=== PATIENT | male | born 1965 | race Caucasian/White ===

== ENCOUNTER 2019-10-21 12:55 | Emergency (ER) | payer MEDICARE, SELFPAY ==
--- NOTE | ~2019-10-21 | XR_ITS ---
EXAMINATION: XR chest 1V portable DATE: 10/21/2019 14:09 INDICATION: Shortness of breath. Cough. TECHNIQUE: A single frontal view of the chest was obtained. COMPARISON: Chest single view 01/12/2018, chest CT 04/24/2017 FINDINGS: There are reticular opacities with architectural distortion in the upper lobes. No pleural effusion or pneumothorax. The heart size is normal. There is a prominent left paracardial fat pad. IMPRESSION: 1. Reticular opacities with architectural distortion in the upper lobes, likely chronic lung disease. Reviewed, dictated and finalized at location A. [employer] [employer]ARDS DISPATCHER
[2019-10-21 13:03] VITALS: BP 133/86; PULSE 121; RESP 30; TEMP 36.9; O2SAT 94
[2019-10-21 13:26] VITALS: PULSE 116; RESP 24
[2019-10-21] MEDS: IPRATROPIUM 0.5 MG/ALBUTEROL SULFATE 2.5 MG AMPUL.NEB 3 ML INHALATION ×2 (13:29→19:03)
[2019-10-21 13:48] LABS: Hematocrit 37.3 % (40.0-54.0); Mean Corpuscular HGB Conc 34.9 g/dL (32.0-36.0); Mean Corpuscular Hemoglobin 31.3 pg (27.0-31.0); Mean Corpuscular Volume 89.9 fL (78.0-102.0); Mean Platelet Volume 8.6 fl (8.7-11.0); Platelet Count Result 111 K/mm3 (150-420); Red Blood Count 4.15 M/mm3 (4.70-6.10); Red Cell Distribution Width 12.1 % (11.6-14.4); White Blood Count 5.3 K/mm3 (4.8-10.8)
[2019-10-21 13:52] VITALS: PULSE 120; RESP 32
[2019-10-21 13:53] LABS: Base Excess ABG 2.7 mmol/L (0-2); HCO3 ABG 27.2 mmol/L (23-29); Modified Allen's Test Pass; Oxygen Content ABG 18.5 %vol (16.0-22.0); Oxygen Saturation ABG 96.3 % (95-97); Oxyhemoglobin 95.3 % (94-100); PCO2 ABG 41.5 mmHg (35-45); PO2 ABG 76.6 mmHg (80-90); Site Drawn RIGHT RADIAL; Total Hemoglobin 13.8 g/dL; pH ABG 7.43 (7.35-7.45)
[2019-10-21 13:54] LABS: Device NASAL CANNULA
[2019-10-21 14:03] LABS: Alanine Aminotransferase 35 U/L (16-63); Albumin Level 3.8 g/dL (3.4-5.0); Alkaline Phosphatase 215 U/L (46-116); Anion Gap 10.3 mmol/L (7-16); Aspartate Amino Transferase 27 U/L (15-37); Bilirubin,Total 0.4 mg/dL (0.00-1.00); Blood Urea Nitrogen 19 mg/dL (7-18); Calcium 8.6 mg/dL (8.5-10.1); Carbon Dioxide 32 mmol/L (21-32); Chloride 95 mmol/L (98-108); Estimated CRCL calculation 47 ml/min; Estimated Glomerular Filt Rate 60; Glucose 113 mg/dL (70-99); Osmolality Calculated 279 mOsm/kg (285-295); Potassium 4.3 mmol/L (3.5-5.1); Sodium 133 mmol/L (136-145); Total Protein 8.2 g/dL (6.4-8.2)
[2019-10-21 14:08] LABS: Lactic Acid 1.2 mmol/L (0.4-2.0)
[2019-10-21] MEDS: methylPREDNISolone SOD SUCC 125 MG VIAL 80 MG IV PUSH (14:12)
--- NOTE | 2019-10-21 14:13 | ED.SOB ---
HPI - SOB/Dyspnea General Chief Complaint: Shortness of Breath/Dyspnea Stated Complaint: ambulance History of Present Illness HPI Narrative: 53-year-old with hx of cystic fibrosis, COPD, seizure disorder, psychosis and depression presents with cough, shortness of breath, weakness and lethargy, onset this AM. He has not been on antibiotics for long time according to his mother. He does not use oxygen, receives neb. tx. BID. He is ambulatory, llives at an assisted living facility. HE is well known at [facility] on the pulmonary floor. In his reported a room air pulse ox 91% respiratory rate 22 pulse rate of 117 BP 152/76 Related Data Home Medications Medication Instructions Recorded Confirmed acetaminophen [Mapap 650 mg PO Q6-8H PRN 10/21/19 10/21/19 (acetaminophen)] albuterol sulfate 0.63 mg INHALATION BID 10/21/19 10/21/19 alum-mag hydroxide-simeth [Mylanta 30 ml PO Q4-5H PRN 10/21/19 10/21/19 Maximum Strength] aspirin 81 mg PO DAILY 10/21/19 10/21/19 bismuth subsalicylate 525 mg PO 8-12XD PRN 10/21/19 10/21/19 calcium carbonate-vitamin D3 1 cap PO DAILY 10/21/19 10/21/19 [Calcium 600 + D(3)] carbamide peroxide [Debrox] 3 drp OTIC (EAR) TID PRN 10/21/19 10/21/19 fluoxetine 40 mg PO DAILY 10/21/19 10/21/19 lamotrigine 100 mg PO DAILY 10/21/19 10/21/19 lamotrigine 150 mg PO HS 10/21/19 10/21/19 [id number]-rvtdtqnk-oanqlil [Creon] 1 cap PO HS 10/21/19 10/21/19 tsnggk-zqnmchwe-yukmnsq [Creon] 2 cap PO TIDWM 10/21/19 10/21/19 magnesium hydroxide [Milk of 30 ml PO DAILY PRN 10/21/19 10/21/19 Magnesia] multivitamin,do-psau-afexuwhm 1 tablet PO DAILY 10/21/19 10/21/19 [Therems-M] omeprazole 20 mg PO BID 10/21/19 10/21/19 phenol [Chloraseptic Throat [place]] 1 spray MUCOUS MEMBRANE TID PRN 10/21/19 10/21/19 risperidone 4 mg PO HS 10/21/19 10/21/19 sodium chloride [Deep Sea Nasal] 2 spray INTRANASAL Q4H PRN 10/21/19 10/21/19 Allergies Allergy/AdvReac Type Severity Reaction Status Date / Time No Known Allergies Allergy Verified 10/21/19 13:17 Review of Systems Review of Systems: Narrative: ROS limited by patient lethargy; aunt (M.P.O.A. who checks on [place] daily) was able to answer some questions.. Constitutional: Constitutional: Denies chills and Denies fever(s) Eyes: Eyes: Denies no additional eye complaints ENT: Denies nasal congestion Cardiovascular: Cardiovascular: Denies chest pain Respiratory: Respiratory: Reports as per HPI Comments: chronic cough Gastrointestinal: Gastrointestinal: Denies abdominal pain and Denies vomiting Integumentary/Breasts: Skin/Breast: Denies rash PMFSH Past Medical History Medical History (Updated 10/22/19 @ 02:06 by Jay Mcdonough MD) Autism COPD (chronic obstructive pulmonary disease) Cystic fibrosis Depression Hard of hearing Psychosis Seizure Surgical History Surgical History (Updated 10/21/19 @ 18:17 by Jay Mcdonough MD) H/O excision of tumor of brain meninges Family History Family History (Updated 10/21/19 @ 18:17 by Jay Mcdonough MD) Father Leukemia Social History Social History (Updated 10/21/19 @ 18:09 by Jay Mcdonough MD) Smoking status: Never smoker Gender identity (if verbalized by the patient): Male Exam Narrative: Exam Narrative: Head flexed forward, opens eyes to command. Labored breathing. Const: General: ill appearing HENMT: Face and sinus: sinuses nontender Mouth: Yes moist mucous membranes Eyes: Conjunctivae: conjunctivae normal Neck: Neck: normal visual inspection and no lymphadenopathy Resp: Auscultation: no rales, no rhonchi, wheezes (inspiratory,expiratory. ) and diminished lung sounds Other: intercostal retraction Cardio: Rate: regular rate and tachycardic GI: Inspection: non-distended GI Palp: Yes Soft to palpation, No Tenderness to palpation present (GI) and No Palpable mass present Back/Spine/Pelvis: Back: no CVA tenderness Skin: General skin exam: normal color Neuro: Ot
[2019-10-21 14:17] LABS: Band Neutrophils Percent 12 % (0-6); Basophils Percent Manual 0 % (0-1); Eosinophils Percent Manual 0 % (1-6); Lymphocytes Absolute Manual 0.58 K/mm3 (1.1-4.5); Lymphocytes Percent Manual 11 % (18-44); Monocytes Percent Manual 0 % (3-9); Neutrophils Absolute Manual 4.71 K/mm3 (1.3-6.7); Neutrophils Percent Manual 77 % (46-73); Platelet Estimate Adequate (Adequate); Total Cells Counted 100
--- NOTE | 2019-10-21 15:44 | PC.NURSE ---
Call placed to [facility] Access line for Dr Mcdonough to speak to cystic fibrosis team. Awaiting call back.
--- NOTE | 2019-10-21 16:09 | PC.NURSE ---
Spoke with [facility] access line. Requested information provided. States will call back with room assignment once available.
--- NOTE | 2019-10-21 17:13 | PC.NURSE ---
YOGESH CALL DR. DOBBS SPEAKS WITH . WILL ACCEPT PT. AWAITING FOR ROOM @[id number]
--- NOTE | 2019-10-21 17:15 | PC.NURSE ---
RESTING FAMILY AT BEDSIDE. MORE ALERT SMILING AND CONVERSING IN ONE WORD SENTENCES WITH STAFF. APPEARS COMFORTABLE.
--- NOTE | 2019-10-21 18:46 | PC.NURSE ---
1800 NO CHANGES. DOZING AT TIMES APPEARS COMFORTABLE. [facility] CALLED NO BED AT THIS TIME . SUPPER TRAY ORDERED. FAMILY REMAINS AT BEDSIDE
[2019-10-21] MEDS: SODIUM CHLORIDE 0.9% IV 1,000 ML 100 ML IV CONT (19:03)
--- NOTE | 2019-10-21 19:12 | PC.NURSE ---
Contacted [facility] access line. Spoke with Osman who states there will be a delay in the pt getting a room assignment. Dr Mcdonough aware. ER hold bed requested.
--- NOTE | 2019-10-21 19:17 | PC.NURSE ---
Pt assigned to room 205 as ER hold.
--- NOTE | 2019-10-21 19:21 | PC.NURSE ---
[facility]CALLED IAN STATES UNSURE WHEN WILL HAVE A BED . DECISION TO PLACE PT IN RM 205 ER HOLD .
[2019-10-21 19:26] VITALS: PULSE 87
--- NOTE | 2019-10-21 19:45 | PC.NURSE ---
TO RM 205 PER LOUISE. IN STABLE CONDITION REPORT TO KEN. O2 CONT @ 3L/NC IV INFUSSING AT 100ML/HR/PUMP PT. AT 90% OF MEAL TRAY SERVED.
[2019-10-21 20:01] LABS: Influenza Control Valid (Valid)
--- NOTE | 2019-10-21 20:17 | PC.NURSE ---
pt arrives from ED for hold, awaiting placement at [facility], sister in law and brother in room, request apple juice with thick it as he has trouble swallowing, sister in law reports he is deaf in L ear and only has 50% hearing in R ear, non prod cough noted, 02 on at 3L
--- NOTE | 2019-10-21 21:22 | PC.NURSE ---
pt resting in bed, no s/sx of distress, intermit. cough , on 3L humidified, rails up, bed alarm on per family, sister in law states that nursing home care finds him up wandering alot and he falls frequently, iv fluids running
--- NOTE | 2019-10-21 21:34 | PC.NURSE ---
upon review of labs pt is found to be positive for flu A, rome will notify dr griffin, pt placed on droplet precautions, er nurse states pt was tested for influenza right before bringing him up and she had not checked back to verify results
--- NOTE | 2019-10-21 21:47 | PC.NURSE ---
Marce notified of pos. flu results. and Dr. Mcdonough notified of results.
[2019-10-21 22:07] VITALS: BP 89/50; PULSE 78; RESP 18; TEMP 36.3; O2SAT 93
--- NOTE | 2019-10-21 22:08 | PC.NURSE ---
report called to Екатерина at [facility], message left for family, [facility] called for transport with [facility] for hot die picker of [phone]
[2019-10-21] MEDS: OSELTAMIVIR PHOSPHATE 75 MG CAP PO (22:16)
--- NOTE | 2019-10-21 22:19 | PC.NURSE ---
late entry for 10/21/20195, left voicemail for pt medical detail representative to inform them about pt testing positive for the flu. no answer, message left.
--- NOTE | 2019-10-21 22:20 | PC.NURSE ---
attempted to reach family again via telephone to notify them that [facility] has a bed available and that pt will be transferring tonight. Left message.
--- NOTE | 2019-10-21 22:20 | PC.NURSE ---
pt given tamiflu in applesauce, takes drink of thickened apple juice, urinal placed between legs
--- NOTE | 2019-10-21 22:51 | PC.NURSE ---
Mae returned call. notified her of influenza exposure and recommended she call their doctor in the AM to see if he has any recommendations for prophylactic treatment to prevent the flu. Also notified her of transport to [facility]. DANY will be here at 11pm. requested that i give her number to the ambulance crew and have them call her when they arrive at [facility].
--- NOTE | 2019-10-21 23:40 | PC.NURSE ---
Normal Saline infusing as ordered upon pt exit of facility with EMS. Stop time for MAR Normal Saline 10/21/2019 @ 4081
--- NOTE | 2019-10-21 23:43 | PC.NURSE ---
pt left facility via EMS at 2320 accompanied by 2 paramedics. made safe exit from unit.
== END 2019-10-21 23:09 | disposition short-term general hospital (02) ==
PROVIDERS: Emergency Provider Family Medicine
DX: E84.9 Cystic fibrosis, unspecified (principal); J44.1 Chronic obstructive pulmonary disease with (acute) exacerbation
CPT/HCPCS: 36415; 36600; 71045; 80053; 82805; 83605; 85025; 87040; 87804; 94640; 96361; 96365; 96367; 96375; 99283; 99285; A9270; J0692; J1956; J2543; J2930; J7030

== ENCOUNTER 2021-01-06 18:33 | Emergency (ER) | payer MEDICARE, SELFPAY ==
--- NOTE | ~2021-01-06 | CT_ITS ---
EXAMINATION: CT facial bones wo con DATE: 01/06/2021 22:10 INDICATION: Facial pain TECHNIQUE: Computed tomography (CT) of the facial bones and maxillofacial region was performed withou t intravenous contrast. The dose-length product (DLP) was 286.17 mGy-cm. Automated exposure control a nd iterative reconstruction technique were employed. COMPARISON: 04/25/2018 FINDINGS: There are comminuted bilateral nasal bone fractures. There is chronic depression in the ant erior wall of the right maxillary sinus. There is a large right frontal and right periorbital hematom a. There is mild mucosal thickening of the paranasal sinuses. Changes of right temporal craniotomy ar e noted. IMPRESSION: 1. Comminuted bilateral nasal bone fractures. 2. Large right frontal and right periorbital hematoma. Reviewed, dictated and finalized at location A.
--- NOTE | ~2021-01-06 | CT_ITS ---
EXAMINATION: CT brain wo con INDICATION: Head injury 02/28/2019 COMPARISON: None TECHNIQUE: Standard unenhanced head CT. The dose-length product (DLP) was 681.00 mGy-cm. The mA was a djusted according to patient size. Iterative reconstruction technique was employed. FINDINGS: There is no intracranial hemorrhage, acute infarction, or abnormal mass lesion. There is a large right frontal scalp and periorbital hematoma. There is no abnormal mass effect or midline shift . Changes of right temporal craniotomy with encephalomalacia in the right temporal lobe are again not ed. Encephalomalacia is also noted in the left temporal lobe. There are extensive calcifications in t he bilateral basal ganglia and frontal lobes. The basal cisterns are patent. The orbits are normal. T here are acute nasal bone fractures. Pansinusitis is noted. IMPRESSION: 1. Right periorbital hematoma without acute intracranial abnormality. 2. Acute nasal bone fractures. Reviewed, dictated and finalized at location A.
--- NOTE | ~2021-01-06 | CT_ITS ---
EXAMINATION: CT abdomen pelvis w con INDICATION: Left flank pain TECHNIQUE: Computed tomographic images of the abdomen and pelvis were obtained after the administrati on of 100 cc of Omnipaque 350 intravenous contrast. The dose-length product (DLP) was 419.64 mGy-cm. Automated exposure control and iterative reconstruction technique were employed. COMPARISON: None available FINDINGS: Minimal dependent atelectasis is present in the lung bases. The heart size is normal. Stone s are present in the nondistended gallbladder. The liver, spleen, pancreas, and adrenal glands are no rmal. The kidneys are unremarkable. No pathologically enlarged abdominal or pelvic lymph nodes are id entified. There is no free intraperitoneal gas or evidence of bowel obstruction. A large volume of co lonic stool is present. There is mild lumbar spondylosis. IMPRESSION: 1. No CT correlate for the patient's symptoms. 2. Cholelithiasis without cholecystitis. Reviewed, dictated and finalized at location A.
--- NOTE | 2021-01-06 18:37 | ED.HEATRA ---
HPI - Head Injury General Chief complaint: Fall Stated complaint: fell cut head Time Seen by Provider: 01/06/21 18:38 Source: patient Mode of arrival: EMS Limitations: other (Unable to give adequate history) History of Present Illness HPI Narrative: 51-year-old man with a history of autism, schizophrenia, cystic fibrosis, COPD and seizures brought to the emergency department by EMS after being found in a hallway with a bleeding nasal laceration. He was noted to have bruising and swelling around his right eye which EMT was told was due to a fall he had several days ago. Staff stated it was likely from a seizure. Patient does not complain of any pain. There is no reported vomiting or recent illness. His last seizure was approximately 1 week ago. MD Complaint: head injury Onset (ago): day(s) Mechanism of Injury: unsure Place: other ( [facility] Loss of Consciousness: unsure Location of injury: face Severity: moderate Other Injuries: other ( left flank contusion noted during exam) Context: on aspirin Associated symptoms: other ( history of seizures) Related Data Home Medications Medication Instructions Recorded Confirmed acetaminophen [Mapap 650 mg PO Q6-8H PRN 10/21/19 01/06/21 (acetaminophen)] albuterol sulfate 0.63 mg INHALATION BID 10/21/19 01/06/21 alum-mag hydroxide-simeth [Mylanta 30 ml PO Q4-5H PRN 10/21/19 01/06/21 Maximum Strength] aspirin 325 mg PO DAILY 10/21/19 01/06/21 bismuth subsalicylate 525 mg PO 8-12XD PRN 10/21/19 01/06/21 calcium carbonate-vitamin D3 1 cap PO DAILY 10/21/19 01/06/21 [Calcium 600 + D(3)] carbamide peroxide [Debrox] 3 drp OTIC (EAR) TID PRN 10/21/19 01/06/21 fluoxetine 40 mg PO DAILY 10/21/19 01/06/21 lamotrigine 100 mg PO DAILY 10/21/19 01/06/21 lamotrigine 150 mg PO HS 10/21/19 01/06/21 fyqaiw-aebhzuvh-lwpzgvc [Creon] 1 cap PO HS 10/21/19 01/06/21 ieblue-ffkfccyr-fujshbo [Creon] 2 cap PO TIDWM 10/21/19 01/06/21 magnesium hydroxide [Milk of 30 ml PO DAILY PRN 10/21/19 01/06/21 Magnesia] multivitamin,yc-mqdi-piolcsgq 1 tablet PO DAILY 10/21/19 01/06/21 [Therems-M] omeprazole 20 mg PO BID 10/21/19 01/06/21 phenol [Chloraseptic Throat [place]] 1 spray MUCOUS MEMBRANE TID PRN 10/21/19 01/06/21 risperidone 4 mg PO HS 10/21/19 01/06/21 sodium chloride [Deep Sea Nasal] 2 spray INTRANASAL Q4H PRN 10/21/19 01/06/21 atorvastatin 40 mg PO DAILY 01/06/21 01/06/21 zgncazsjrcs-dkphrpddhm-shilelg 1 ea PO DAILY 01/06/21 01/06/21 [Trikafta] Allergies Allergy/AdvReac Type Severity Reaction Status Date / Time No Known Allergies Allergy Verified 01/06/21 22:34 Review of Systems Review of Systems: All systems reviewed & are unremarkable except as noted in HPI and below ROS unobtainable: Yes other ( hard of hearing, poor communication skills, few words.) Constitutional: Constitutional: Reports chills PMFSH Past Medical History Medical History Autism COPD (chronic obstructive pulmonary disease) Cystic fibrosis Depression Hard of hearing Psychosis Seizure Surgical History Surgical History H/O excision of tumor of brain meninges Family History Family History (Updated 10/21/19 @ 18:17 by Jay Mcdonough, ) Father Leukemia Social History Social History Smoking status: Never smoker Gender identity (if verbalized by the patient): Male Exam Const: General: healthy appearing, no acute distress and alert HENMT: Ears: TM's normal bilaterally and EAC's normal Face and sinus: sinus tenderness maxillary ( Right) Mouth: Yes moist mucous membranes Throat: posterior oropharynx normal and uvula midline Other: Right periorbital swelling and bruising with a transverse laceration on the bridge of the nose where there is swelling and tenderness. Eyes: Conjunctivae: conjunctivae n
--- NOTE | 2021-01-06 18:38 | ECG_ITS ---
Measurements Intervals [place] Rate: P: OR: QRS: QRSD: T: QT: QTc: Interpretive Statements SINUS RHYTHM BASELINE ARTIFACT- I, II, III, AVR, AVL, AVF, V1-V4 NORMAL ECG Electronically Signed On 01-07-2021 12:30:37 CDT by Adalid Lee D.O.
[2021-01-06 18:51] VITALS: BP 114/58; PULSE 81; RESP 20; TEMP 36.4; O2SAT 97
[2021-01-06 19:00] VITALS: BP 110/86; PULSE 95; RESP 20; O2SAT 97
[2021-01-06 19:05] LABS: Basophils Absolute Auto 0.01 K/mm3 (0.00-0.10); Basophils Percent Auto 0.2 % (0.0-1.0); Eosinophils Percent Auto 4.1 % (1.0-6.0); Hematocrit 34.1 % (40.0-54.0); Hemoglobin 11.7 g/dL (14.0-18.0); Immature Granulocyte Absolute 0.01 K/mm3 (0.00-0.00); Immature Granulocyte Percent A 0.2 % (0.0-0.0); Immature Platelet Fraction Pct 1.4 % (1.0-7.0); Lymphocytes Absolute Auto 1.21 K/mm3 (1.10-4.50); Lymphocytes Percent Auto 24.6 % (18.0-42.0); Mean Corpuscular HGB Conc 34.3 g/dL (32.0-36.0); Mean Corpuscular Hemoglobin 32.9 pg (27.0-31.0); Mean Corpuscular Volume 95.8 fL (78.0-102.0); Mean Platelet Volume 9.3 fl (8.7-11.0); Monocytes Absolute Auto 0.52 K/mm3 (0.10-0.90); Monocytes Percent Auto 10.6 % (2.0-11.0); Neutrophils Percent Auto 60.3 % (50.0-70.0); Platelet Count Result 111 K/mm3 (150-420); Red Blood Count 3.56 M/mm3 (4.70-6.10); White Blood Count 4.9 K/mm3 (4.8-10.8)
[2021-01-06] MEDS: ONDANSETRON INJ 4 MG/2 ML VIAL IV PUSH (19:14)
[2021-01-06] MEDS: SODIUM CHLORIDE 0.9% IV 1,000 ML 999 ML IV CONT ×2 (19:14→21:17)
[2021-01-06 19:18] LABS: INR 1.1; Partial Thromboplastin Time 27.8 SEC (23.90-30.70); Prothrombin Time 11.8 Seconds (9.50-12.10)
[2021-01-06 19:22] LABS: Alanine Aminotransferase 40 U/L (16-63); Albumin Level 3.4 g/dL (3.4-5.0); Alkaline Phosphatase 191 U/L (46-116); Anion Gap 4 mmol/L (8-16); Aspartate Amino Transferase 25 U/L (15-37); Bilirubin,Total 0.6 mg/dL (0.00-1.00); Blood Urea Nitrogen 25 mg/dL (7-18); Carbon Dioxide 31 mmol/L (21-32); Chloride 99 mmol/L (98-108); Estimated Glomerular Filt Rate > 60; Glucose 121 mg/dL (70-99); Lactic Acid Reflex 1.1 mmol/L (0.4-2.0); Lipase 14 U/L (73-393); Osmolality Calculated 283 mOsm/kg (285-295); Potassium 4.2 mmol/L (3.5-5.1); Sodium 134 mmol/L (136-145); Total Protein 6.7 g/dL (6.4-8.2); Troponin I < 4.0 ng/L (0.00-60.4)
[2021-01-06 21:15] VITALS: BP 118/79; PULSE 81; RESP 20; O2SAT 95
[2021-01-06 22:35] LABS: Add Urine Microscopic? NO; Appearance Urine Clear (Clear); Bilirubin Urine Negative (Negative); Blood Urine Negative (Negative); Color Urine Yellow (Yellow); Glucose Urine UA Negative (Negative); Ketones Urine Negative (Negative); Leukocyte Esterase Ur Negative LEU/UL (Negative); Nitrate Urine Negative (Negative); Protein Urine Negative (Negative); Specific Grav Ur 1.015 (1.010-1.020)
--- NOTE | 2021-01-06 22:53 | PC.NURSE ---
dr usarez spoke with [facility] care staff December about discharge planning and followup instructions. voiced understanding. december to send staff member to supervisor opening and picking patient for discharge.
[2021-01-06 22:57] VITALS: BP 125/81; PULSE 84; RESP 20; TEMP 36.9; O2SAT 94
--- NOTE | 2021-01-06 23:30 | PC.NURSE ---
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 assisted to car per rn
== END 2021-01-06 22:23 | disposition home or self-care (01) ==
PROVIDERS: Emergency Provider Emergency Medicine
DX: S02.2XXA Fracture of nasal bones, initial encounter for closed fracture (principal); S05.11XA Contusion of eyeball and orbital tissues, right eye, initial encounter; J44.9 Chronic obstructive pulmonary disease, unspecified; E84.9 Cystic fibrosis, unspecified; F32.9 Major depressive disorder, single episode, unspecified; F29 Unspecified psychosis not due to a substance or known physiological condition; R56.9 Unspecified convulsions; F84.0 Autistic disorder; Z98.890 Other specified postprocedural states; Z87.828 Personal history of other (healed) physical injury and trauma; Z91.81 History of falling
CPT/HCPCS: 36415; 70450; 70486; 74177; 80053; 81003; 83605; 83690; 84484; 85025; 85055; 85610; 85730; 93005; 96361; 96374; 99284; J2405; J7030; Q9967

== ENCOUNTER 2021-07-04 00:50 | Observation (INO) | payer MEDICARE, SELFPAY ==
[2021-07-04] VITALS (12 sets, daily range): BP systolic 91–126; BP diastolic 59–80; PULSE 70–105; RESP 12–20; TEMP 35.4–36.4; O2SAT 93–99
--- NOTE | ~2021-07-04 | CT_ITS ---
EXAMINATION: CT facial & cervical spine wo EXAM DATE: 07/04/2021 01:42 INDICATION: Fall/Head Injury Fall/Left Forehead Lac And Hematoma. TECHNIQUE: Spiral CT of the facial bones was acquired in the axial plane. Coronal reformatted images were also reviewed. Spiral CT of the cervical spine was performed without contrast. Axial images we re reviewed. Coronal and sagittal reformatted images were also reviewed. The dose-length product (DL P) for this examination was 395.31 mGy-cm. The exposure was tailored according to patient size, and iterative reconstruction (ASIR) was used as additional dose reduction technique. Comparison is made t o prior examination from 01/06/2021. FINDINGS: FACIAL CT: There is large left frontal scalp contusion, hematoma. Probable overlying laceration given focus of subcutaneous gas. Underlying calvarium is unremarkable. Nasal bone fractures which appear m ost likely old given absence of overlying soft tissue findings and that these appear more chronic com pared to when they were initially identified on CT from January. Position is unchanged compared to that t gi. There is moderate rightward nasal septal deviation. The orbits are intact. There are bilateral maxillary sinus window procedures. Opacified ethmoid air cells and moderate opacity within the axill danitza sinuses. Opacity in the frontal sinuses as well with wall thickening throughout the sinuses indic ating history of chronic sinusitis. CERVICAL CT: There is no evidence of acute cervical fracture. The odontoid process is intact. Pre-d ens space is normal. Prevertebral soft tissue is normal. There are no soft tissue abnormalities edmundo ntified. There is no disc space widening or traumatic vertebral body subluxation suspected. Overall moderate cervical spondylosis. A detailed level by level evaluation of spondylosis can be added as addendum if requested. IMPRESSION: 1. No acute facial or cervical fracture. 2. Large left frontal scalp contusion, hematoma. Laceration. 3. Old nasal bone fractures. 4. Extensive acute on chronic sinus opacity. 5. Mild to moderate cervical spondylosis. Reviewed, dictated and finalized at location B.
--- NOTE | ~2021-07-04 | CT_ITS ---
EXAMINATION: CT brain wo con EXAM DATE: 07/04/2021 01:42 INDICATION: Fall/Head Injury Fall/Left Forehead Lac And Hematoma TECHNIQUE: Spiral CT of the head was performed without contrast. Axial, coronal and sagittal images were reviewed. The dose-length product (DLP) for this examination was 681.00 mGy-cm. The exposure w as tailored according to patient size, and iterative reconstruction (ASIR) was used as additional dos e reduction technique. Comparison is made to prior examination from 01/06/2021. FINDINGS: There are dense calcifications in the basal ganglia, thalami. There are smaller calcificati ons identified in the periventricular white matter and in the bay. There is broad differential diagn osis for these calcifications including physiologic/dystrophic calcifications, toxic metabolic etiolo gy, sequela from childhood or infection. These are unchanged. There is also calcification in the right mesial temporal lobe, most likely postoperative dystrophic calcification given the overlyi ng craniotomy and adjacent temporal lobe encephalomalacia. There is a large left frontal scalp contusion/hematoma without underlying fracture. Tiny focus of sub cutaneous gas indicating scalp laceration. There is no obstructive hydrocephalus, acute intracranial hemorrhage, extra-axial collections, brain mass or evidence of acute infarction. There is moderate microangiopathy and mild cerebral atrophy. Th ere are bilateral maxillary sinus window procedures with extensive sinus opacity superimposed on wall thickening indicating history of chronic sinusitis. The mastoid air cells are well aerated. IMPRESSION: 1. Left frontal scalp contusion, hematoma, laceration. No acute intracranial findings. 2. Right temporal craniotomy, underlying encephalomalacia and mesial temporal lobe ossification prob ably dystrophic. 3. Scattered nonspecific calcifications unchanged. Reviewed, dictated and finalized at location B. IMPRESSION: 1. Left frontal scalp contusion, hematoma, laceration. No acute intracranial f indings. 2. Right temporal craniotomy, underlying encephalomalacia and mesial temporal lobe ossification probably dystrophic. 3. Scattered nonspecific calcifications unchanged.
--- NOTE | 2021-07-04 01:19 | ED.GENADULT ---
HPI - General Adult General Chief complaint: Fall Stated complaint: fall laceration above eye Source: patient and EMS Mode of arrival: EMS Limitations: clinical condition History of Present Illness HPI narrative: Ivan is a 55M with a PMH of autism, COPD, cystic fibrosis, depression and seizures that came to the ED via ambulance after a fall. He was coming back from the bathroom and went down. Per EMS he was not down very long. He is oriented to himself, place and time but further history is near impossible due to comorbid conditions. Related Data Home Medications Medication Instructions Recorded Confirmed Calcium 600 + D(3) 1 cap PO DAILY 10/21/19 07/04/21 Chloraseptic Throat [place] 1 spray MUCOUS MEMBRANE TID PRN 10/21/19 07/04/21 Creon 1 cap PO HS 10/21/19 07/04/21 Creon 2 cap PO TIDWM 10/21/19 07/04/21 Therems-M 1 tablet PO DAILY 10/21/19 07/04/21 acetaminophen [Mapap 650 mg PO Q6-8H PRN 10/21/19 07/04/21 (acetaminophen)] alum-mag hydroxide-simeth [Mylanta 30 ml PO Q4-5H PRN 10/21/19 07/04/21 Maximum Strength] aspirin 325 mg PO DAILY 10/21/19 07/04/21 bismuth subsalicylate 525 mg PO 8-12XD PRN 10/21/19 07/04/21 lamotrigine 100 mg PO DAILY 10/21/19 07/04/21 lamotrigine 150 mg PO HS 10/21/19 07/04/21 magnesium hydroxide [Milk of 30 ml PO DAILY PRN 10/21/19 07/04/21 Magnesia] omeprazole 20 mg PO BID 10/21/19 07/04/21 risperidone 2 mg PO HS 10/21/19 07/04/21 Trikafta 1 ea PO HS 07/04/21 07/04/21 albuterol sulfate 2.5 mg INHALATION BID 07/04/21 07/04/21 Allergies Allergy/AdvReac Type Severity Reaction Status Date / Time No Known Allergies Allergy Verified 01/06/21 22:34 Review of Systems Review of Systems: ROS unobtainable: Yes unobtainable due to medical condition PMFSH Past Medical History Medical History Autism COPD (chronic obstructive pulmonary disease) Cystic fibrosis Depression Hard of hearing Psychosis Seizure Surgical History Surgical History H/O excision of tumor of brain meninges Family History Family History Father Leukemia Social History Social History Smoking status: Unknown if ever smoked Alcohol intake: unknown Substance use: unknown Substance use type: unknown Gender identity (if verbalized by the patient): Male Spiritual care concerns: No Exam Const: General: healthy appearing, no acute distress and alert Orientation/consciousness: patient oriented x3 HENMT: Other: golf ball sized contusion over the left eye with 3 shallow lacerations all horizontal above the left eyebrow Eyes: Conjunctivae: conjunctivae normal Pupils: Equal, round and reactive pupils present Neck: Neck: normal visual inspection Other: in cervical collar Chest: Chest palpation & inspection: normal inspection of the chest Resp: Effort & Inspection: normal respiratory effort, not labored, no retractions and not tachypneic Auscultation: clear to auscultation bilaterally Cardio: Rate: regular rate Rhythm: regular rhythm GI: Inspection: non-distended GI Palp: Yes Soft to palpation, No Tenderness to palpation present (GI) and No Guarding due to palpation present (GI) Skin: General skin exam: normal color Rashes: no rashes Neuro: General: patient oriented x3, moves all extremities and CN's II-XI intact bilaterally Psych: Appearance: grossly normal Attitude: cooperative (Would cooperate with commands but could give almost no history ) Course Course Emergency Course: Ordered CT head, facial bones, and cervical spine as well as labs and EKG. EKG showed NSR at a rate of 78bpm with normal axis CT impression: Head: No intracranial hemorrhage, no significant mass effect or midline shift. No calvarial fracture with right temporal craniotomy incidental
--- NOTE | 2021-07-04 01:21 | PC.NURSE ---
pt is from [facility], EMS stated that they do not know what the pt's baseline AxO. upon arrival at the ER pt answering yes and no to questions but unclear if the pt understands questions. pt unable to confirm how he fell. pt is a poor historian. MD Blevins aware of pt orientation status.
--- NOTE | 2021-07-04 01:26 | ECG_ITS ---
Measurements Intervals [place] Rate: 78 P: 60 DC: 180 QRS: 59 QRSD: 97 T: 40 QT: 367 QTc: 419 Interpretive Statements SINUS RHYTHM NONSPECIFIC T-WAVE ABNORMALITY- ANTEROLATERAL LEADS BASELINE ARTIFACT- I, II, III, AVR, AVL, AVF, V1-V6 BORDERLINE ECG Electronically Signed On 07-04-2021 8:24:43 CDT by Adalid Lee D.O.
[2021-07-04 02:09] LABS: Hematocrit 29.8 % (40.0-54.0); Hemoglobin 10.6 g/dL (14.0-18.0); Immature Platelet Fraction Pct 1.8 % (1.0-7.0); Mean Corpuscular HGB Conc 35.6 g/dL (32.0-36.0); Mean Corpuscular Hemoglobin 33.8 pg (27.0-31.0); Mean Corpuscular Volume 94.9 fL (78.0-102.0); Platelet Count Result 77 K/mm3 (150-420); Red Blood Count 3.14 M/mm3 (4.70-6.10); Red Cell Distribution Width 13.5 % (11.6-14.4); White Blood Count 3.6 K/mm3 (4.8-10.8)
[2021-07-04 02:11] LABS: INR 1.1; Prothrombin Time 11.6 Seconds (9.50-12.10)
[2021-07-04 02:18] LABS: Alanine Aminotransferase 53 U/L (16-63); Albumin Level 2.9 g/dL (3.4-5.0); Alkaline Phosphatase 183 U/L (46-116); Anion Gap 8 mmol/L (8-16); Aspartate Amino Transferase 55 U/L (15-37); Bilirubin,Total 0.5 mg/dL (0.00-1.00); Blood Urea Nitrogen 23 mg/dL (7-18); Calcium 8.3 mg/dL (8.5-10.1); Carbon Dioxide 29 mmol/L (21-32); Chloride 102 mmol/L (98-108); Estimated CRCL calculation 93 ml/min; Estimated Glomerular Filt Rate > 60; Glucose 107 mg/dL (70-99); Osmolality Calculated 291 mOsm/kg (285-295); Potassium 4.1 mmol/L (3.5-5.1); Sodium 139 mmol/L (136-145); Total Protein 5.8 g/dL (6.4-8.2); Troponin I 6.7 ng/L (0.00-60.4)
[2021-07-04 02:30] LABS: Band Neutrophils Percent 0 % (0-6); Basophils Absolute Manual 0.03 K/mm3 (0-0.1); Basophils Percent Manual 1 % (0-1); Eosinophils Absolute Manual 0.21 K/mm3 (0.02-0.5); Eosinophils Percent Manual 6 % (1-6); Lymphocytes Percent Manual 28 % (18-44); Monocytes Absolute Manual 0.18 K/mm3 (0.1-0.90); Monocytes Percent Manual 5 % (3-9); Neutrophils Absolute Manual 2.16 K/mm3 (1.3-6.7); Neutrophils Percent Manual 60 % (46-73)
--- NOTE | 2021-07-04 03:53 | PC.NURSE ---
one liter of NS completed that was started by EMS.
--- NOTE | 2021-07-04 06:21 | ADMGEN ---
This patient, Ivan Mayfield, was admitted to 2nd Floor Room 206-1. Patient/family oriented to hospital policies and general routines including ID bracelet, bed and alarms, visiting hours, pain management, procedures, bathroom and other care routines, personal items, smoking policy, room service/diet, and visiting hours. patient admitted from [facility] s/p fall, patient alert to self follows commands, garbled speech, left eye and forehead swollen and bruised. vitals signs stable, see admission assessment. Information on how to activate the Rapid Response Team has been discussed. Patient/Family are encouraged to report perceived risks to care and to ask questions if they do not understand what they are told or what they should do.
[2021-07-04] MEDS: ASPIRIN 81 MG CHEWABLE TABLET 324 MG PO (08:24)
[2021-07-04] MEDS: lamoTRIgine 100 MG TABLET PO (08:24)
[2021-07-04] MEDS: ALBUTEROL SULFATE NEB 2.5 MG/3 ML INH INHALATION ×2 (10:38→18:29)
--- NOTE | 2021-07-04 13:49 | PCPTNOTE ---
No Care Plan initiated due to patient medical status, and current level of function. patient would do well to DC to [facility].
--- NOTE | 2021-07-04 14:44 | PM.IMHP ---
H&P: HPI History of Present Illness Date/Time: 07/04/21 14:44 Ivan Mayfield is a 55 year old male who comes to the hospital and being admitted under observation for head injury related to falling at the assisted living facility he resides. Pt has a PMHx of Autism, Cystic Fibrosis, Cystic fibrosis, Psychosis, Seizure, DIOMEDE, and Depression which makes obtaining a HPI and ROS very difficult. Pt mumbles often though I was able to understand that he walked somewhere then was walking back and fell. He points to the left side of his nose and above his left eye when asked where he has pain. His baseline mental status is unknown. His POA came to the hospital and informed me that Pt is at his mental baseline. Pt responds best to yes no questions. The POA informed me that he would like for his brother to return to the assisted living facility. I informed him that PT did a DC evaluation and recommended a [facility]dc Facility. I did speak with [place]ena, Case Management and PT to see if there was any way to get swing bed for this Pt to increase his mobility and return to the assisted living. Unfortunately, with the Pt being at baseline s/p head injury and there is nothing else medical to treat other than chronic conditions we well look to get patient accepted by a alf facility. Pt's brother and POA agreed to Fdc. Chief Complaint: head injury Review of Systems Review of Systems: ROS unobtainable: Yes unobtainable due to mental status PMFSH Past Medical History Medical History Autism COPD (chronic obstructive pulmonary disease) Cystic fibrosis Depression Hard of hearing Psychosis Seizure Surgical History Surgical History H/O excision of tumor of brain meninges Family History Family History Father Leukemia Social History Social History Smoking status: Unknown if ever smoked Alcohol intake: unknown Substance use: unknown Substance use type: unknown Gender identity (if verbalized by the patient): Male Spiritual care concerns: No Meds Home Medications and Allergies Home Medications Medication Instructions Recorded Confirmed Type acetaminophen [Mapap 650 mg PO Q6-8H PRN 10/21/19 07/04/21 History (acetaminophen)] albuterol sulfate 0.63 mg INHALATION BID 10/21/19 07/04/21 History alum-mag hydroxide-simeth [Mylanta 30 ml PO Q4-5H PRN 10/21/19 07/04/21 History Maximum Strength] aspirin 325 mg PO DAILY 10/21/19 07/04/21 History bismuth subsalicylate 525 mg PO 8-12XD PRN 10/21/19 07/04/21 History calcium carbonate-vitamin D3 1 cap PO DAILY 10/21/19 07/04/21 History [Calcium 600 + D(3)] lamotrigine 100 mg PO DAILY 10/21/19 07/04/21 History lamotrigine 150 mg PO HS 10/21/19 07/04/21 History dyswff-mtshdmkl-fhecaft [Creon] 1 cap PO HS 10/21/19 07/04/21 History wygzgq-moopcsmz-epklqbk [Creon] 2 cap PO TIDWM 10/21/19 07/04/21 History magnesium hydroxide [Milk of 30 ml PO DAILY PRN 10/21/19 07/04/21 History Magnesia] multivitamin,tb-hyxy-izedewko 1 tablet PO DAILY 10/21/19 07/04/21 History [Therems-M] omeprazole 20 mg PO BID 10/21/19 07/04/21 History phenol [Chloraseptic Throat Francisco] 1 spray MUCOUS MEMBRANE TID PRN 10/21/19 07/04/21 History risperidone 2 mg PO HS 10/21/19 07/04/21 History ncxaymfwmxx-dzlrtgtauf-hnpegvf 1 ea PO HS 07/04/21 07/04/21 History [Trikafta] Allergies Allergy/AdvReac Type Severity Reaction Status Date / Time No Known Allergies Allergy Verified 01/06/21 22:34 Vital Signs Vital Signs - 24 hr 07/04/21 01:03 07/04/21 03:04 07/04/21 03:40 Temperature 96.4 F L Pulse Rate 76 105 H 73 Respiratory Rate 12 18 15 Blood Pressure 112/65 118/77 Pulse Oximetry 94 95 95 07/04/21 04:00 07/04/21 04:04 07/04/21 08:00 Temperature 97.5 F L
--- NOTE | 2021-07-04 15:34 | PHAR ---
07/03/21: VERIFIED PT.'S HOME MED NIKA. TLS
--- NOTE | 2021-07-04 18:57 | PC.NURSE ---
pt up to bedside commode, up with x2 assist and walker, pt returns to bed, when asked if he is having any pain pt says no, bed alarm on, rails up, call light in reach
[2021-07-04] MEDS: lamoTRIgine 100 MG TABLET 150 MG PO (20:22)
[2021-07-04] MEDS: risperiDONE 1 MG TABLET 2 MG PO (20:23)
--- NOTE | 2021-07-04 23:42 | PC.NURSE ---
Patient in bed with eyes closed Pain 0 on FLACC. Call light in reach. Alarms on.
[2021-07-05] VITALS: BP 117/71; PULSE 67; TEMP 36.4; O2SAT 95
--- NOTE | 2021-07-05 00:40 | PC.NURSE ---
Up to bedside commode to urinate. unsteady on feet. 1 assist to stand. IV site flushed without difficulty
[2021-07-05] MEDS: ALBUTEROL SULFATE NEB 2.5 MG/3 ML INH INHALATION (05:32)
[2021-07-05 05:33] VITALS: PULSE 68; RESP 16; O2SAT 93
--- NOTE | 2021-07-05 05:38 | PC.NURSE ---
Patient up to bedside commode with assist of 1 and gait belt. does not wait for assistance. Bed alarms on. call light in reach.
[2021-07-05 05:39] VITALS: PULSE 69; RESP 18; O2SAT 96
[2021-07-05 08:00] VITALS: BP 122/59; PULSE 70; RESP 16; TEMP 36.2; O2SAT 95
[2021-07-05] MEDS: ASPIRIN 81 MG CHEWABLE TABLET 324 MG PO (09:20)
[2021-07-05] MEDS: lamoTRIgine 100 MG TABLET PO (09:21)
[2021-07-05 12:00] VITALS: BP 120/60; PULSE 70; RESP 14; TEMP 36.6; O2SAT 98
--- NOTE | 2021-07-05 13:39 | PM.DS ---
DS: Admitting Diagnosis Discharge Date 07/05/2021 <Carlos IniguezINGA PizanoC - Last Filed: 07/05/21 13:58> Admitting Diagnosis Closed Fracture of Nasal Bone, Closed Head Injury, Cystic Fibrosis, Autism <Carlos IniguezINGA PizanoC - Last Filed: 07/05/21 13:58> DS: Discharge Diagnosis Discharge Diagnosis (1) Closed fracture nasal bone: Code(s): S02.2XXA - Fracture of nasal bones, initial encounter for closed fracture <Carlos GeethaSachin Garcia APN-C - Last Filed: 07/05/21 13:58> Status: Acute <Carlos GeethaSachin Garcia APN-C - Last Filed: 07/05/21 13:58> Assessment and Plan: PRN [place], Morphine, Tylenol, Neuro checks (difficult d/t baseline mental status) and per brother, POA Pt is at baseline, no active bleeding 07/05/2021 Pain is managed well, no complaints from Pt, says no to if he has pain, VSS <Carlos IniguezSachin Garcia APN-C - Last Filed: 07/05/21 13:58> (2) CHI (closed head injury): Code(s): S09.90XA - Unspecified injury of head, initial encounter <Carlos GeethaSachin Garcia APN-C - Last Filed: 07/05/21 13:58> Status: Acute <Carlos IniguezSachin Garcia APN-C - Last Filed: 07/05/21 13:58> Assessment and Plan: Neuro checks as noted above, no active bleeding, does follow commands when Pt understands, need to use simple commands 07/05/2021 Neuro checks are WNL to the best ability given Pt difficulty with communication, Yesterday Pt's brother was in the room and stated the Pt is at his baseline. <INGA NietoC - Last Filed: 07/05/21 13:58> (3) Cystic fibrosis: Code(s): E84.9 - Cystic fibrosis, unspecified <Carlos Garcia APN-C - Last Filed: 07/05/21 13:58> Status: Acute <Carlos GeethaSachin Garcia APN-C - Last Filed: 07/05/21 13:58> Assessment and Plan: Continue home medications <Carlos RoblesALYSIA spears - Last Filed: 07/05/21 13:58> (4) Autism: Code(s): F84.0 - Autistic disorder <Carlos GarciaALYSIA - Last Filed: 07/05/21 13:58> Status: Acute <Carlos RoblesKOBI spearsEdelmiraAlfonzo - Last Filed: 07/05/21 13:58> Assessment and Plan: Need to speak slow, simple questions, yes or no response questions work best. <Carlos Pedraza ALYSIA Garcia - Last Filed: 07/05/21 13:58> DS: Summary Hospital Course Hospital Course: Pt back at mental baseline per brother, POA. swelling improved <Carlos RoblesALYSIA spears - Last Filed: 07/05/21 13:58> Time Spent with Patient Time attestation: Total time spent providing and/or coordinating discharge services: < 30 minutes <Carlos IniguezALYSIA Pizano - Last Filed: 07/05/21 13:58> Exam Const: General: cooperative, comfortable, no acute distress, alert, awake, Physically active and tired appearing <Carlos IniguezALYSIA Pizano - Last Filed: 07/05/21 13:58> Nutritional Appearance: average body habitus <Carlos RoblesALYSIA spears - Last Filed: 07/05/21 13:58> Limitations: no limitations (difficulty communicating, Autism, mumbles a lot) <Carlos IniguezALYSIA Pizano - Last Filed: 07/05/21 13:58> Eyes: Alignment and Position: alignment normal <Carlos IniguezALYSIA Pizano - Last Filed: 07/05/21 13:58> Resp: Effort & Inspection: normal respiratory effort <Carlos IniguezALYSIA Pizano - Last Filed: 07/05/21 13:58> Auscultation: clear to auscultation bilaterally <Carlos IniguezALYSIA Pizano - Last Filed: 07/05/21 13:58> Cardio: Rate: regular rate <Carlos IniguezALYSIA Pizano - Last Filed: 07/05/21 13:58> Heart sounds: S1 normal heart sound present and S2 normal heart sound present <ALYSIA Nieto - Last Filed: 07/05/21 13:58> GI: GI Palp: Yes Soft to palpation and No Tenderness to palpation present (GI) <ALYSIA Nieto - Last Filed: 07/05/21 13:58> Auscultation: normal bowel sounds <ALYSIA Nieto - Last Filed: 07/05/21 13:58> Skin: General skin exam: normal color and dry skin <ALYSIA Nieto - Last Filed: 07/05/21 13:58> Neuro: General: oriented to person <ALYSIA Nieto - Last Filed: 07/05/21 13:58>
[2021-07-05 14:18] LABS: SARS-CoV-2 RNA PCR Negative (Negative)
--- NOTE | 2021-07-05 14:43 | PC.NURSE ---
This RN called report to Holly at [facility] in [facility]. Pt has been stable today, eaten well and is taking fluids well. Pt takes meds whole with Honey thick liquids. Pt's brother is here with pt.
--- NOTE | 2021-07-05 15:15 | PC.NURSE ---
Patient discharging to [facility] in [facility]. [facility] here to transport patient to facility. Report given to EMS and discharge education and instruction packet given to EMS. Patient transferred from bed to stretcher with no assist by scooting on back over to stretcher. Patients uncle Cholo took patient clothing home to wash them. All other belongings gathered and sent with patient at discharge including home medication. IV site removed, tip intact, dressing applied to site. Patient left floor via stretcher accompanied by EMS.
--- NOTE | 2021-07-10 13:28 | PC.NURSE ---
Unable to contact for discharge call back.
== END 2021-07-05 15:15 ==
LOC: CHSED 03:02 → CHS2ND 07:22
PROVIDERS: Nurse Practitioner Family; Admitting Provider Family Medicine; Emergency Provider Family Medicine; Visit Provider Family Medicine
DX: S09.90XA Unspecified injury of head, initial encounter (principal); S00.83XA Contusion of other part of head, initial encounter; J44.9 Chronic obstructive pulmonary disease, unspecified; E84.9 Cystic fibrosis, unspecified; R56.9 Unspecified convulsions; H91.90 Unspecified hearing loss, unspecified ear; F84.0 Autistic disorder; F32.A Depression, unspecified; W19.XXXA Unspecified fall, initial encounter; Z98.890 Other specified postprocedural states; Z20.822 Contact with and (suspected) exposure to COVID-19
CPT/HCPCS: 36415; 70450; 70486; 72125; 80053; 84484; 85025; 85055; 85610; 93005; 94640; 97161; 99283; 99285; A9270; C9803; G0378; U0003; U0005

== ENCOUNTER 2021-10-04 09:00 | Inpatient (IN) | payer MEDICARE, SELFPAY ==
[2021-10-04] VITALS (8 sets, daily range): BP systolic 80–103; BP diastolic 37–74; PULSE 57–122; RESP 12–23; TEMP 30.5–36.6; O2SAT 90–99; BMI 28.5
--- NOTE | ~2021-10-04 | XR_ITS ---
XR chest 1V portable 10/04/2021 09:27 Indication: Status post fall. History of CHF. Procedure: AP portable chest Comparison: Comparison to multiple prior studies sequentially, with oldest reviewed study dated 04/2018. Findings: There is bilateral perihilar airspace disease. Heart size normal. No pleural effusion or pn eumothorax. No acute osseous abnormality. Impression: 1: Bilateral perihilar airspace disease which may represent edema or pneumonia. Reviewed, dictated and finalized at location B. RACK OPERATOR Impression: 1: Bilateral perihilar airspace disease which may represent edema or pneumonia.
--- NOTE | ~2021-10-04 | XR_ITS ---
XR chest 1V portable DATE: 10/04/2021 23:36 INDICATION: Emesis, possible aspiration TECHNIQUE: Portable AP chest on 10/04/2021 at 2328 hours COMPARISON: 10/04/2019 portable AP chest FINDINGS: There are mild patchy infiltrates in the mid and lower lung zones, left greater than right. Normal heart size. No pleural effusion or pneumothorax. IMPRESSION: Bilateral mid and lower pulmonary infiltrates, left greater than right. Consider pneumoni a; aspiration pneumonitis is not excluded Reviewed, dictated and finalized at location A. HEAD PUMPER IMPRESSION: Bilateral mid and lower pulmonary infiltrates, left greater than ri ght. Consider pneumonia; aspiration pneumonitis is not excluded
--- NOTE | ~2021-10-04 | XR_ITS ---
EXAMINATION: XR chest port-a-cath/central DATE: 10/05/2021 00:38 INDICATION: Central line placement. TECHNIQUE: A single frontal view of the chest was obtained. COMPARISON: Chest single view 10/04/2021 FINDINGS: Right lateral costophrenic angle is excluded. There are mild airspace opacities in the mid and lower lung zones. No pleural effusion or pneumothorax. The heart size is normal. A right subclavi an central venous catheter is seen with tip in the superior vena cava. IMPRESSION: 1. Central line tip in superior vena cava. 2. Mild airspace opacities in the mid and lower lung zones, consistent with COVID-19 pneumonia. Reviewed, dictated and finalized at location A. CLERK IMPRESSION: 1. Central line tip in superior vena cava. 2. Mild airspace opacities in the mid and lower lung zones, consistent with COV ID-19 pneumonia.
--- NOTE | ~2021-10-04 | XR_ITS ---
XR pelvis 1-2V 10/04/2021 09:25 Indication: Pelvic pain after fall Procedure: AP view of the pelvis Comparison: No prior studies for comparison. Findings: Pelvic rings are intact. Sacral foramen are symmetric. Mild osteoarthritis of the hips. No significant soft tissue abnormality. No foreign body. Impression: 1: No acute bone or joint abnormality. Reviewed, dictated and finalized at location B. IMEDIA COORDINATOR Impression: 1: No acute bone or joint abnormality.
--- NOTE | ~2021-10-04 | CT_ITS ---
EXAMINATION: CT brain wo con EXAM DATE: 10/04/2021 09:11 INDICATION: Stroke symptoms ?CVA,Unresponsive/Nonverbal,Since 0500 . Meningeal tumor resection. TECHNIQUE: Spiral CT of the head was performed without contrast. Axial, coronal and sagittal images were reviewed. The dose-length product (DLP) for this examination was 605.33 mGy-cm. The exposure w as tailored according to patient size, and iterative reconstruction (ASIR) was used as additional dos e reduction technique. Comparison is made to prior examination from 07/04/2021. FINDINGS: Surgical changes from right temporal craniotomy. 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 Dense bilateral basal ganglia and thalamic calcifications. Right frontal lobe and mesial temporal lobe dystrophic calcification, bay calcification. Periventricular hypodensity, could be old periventricular leukomalacia or microangiopathy. No CT evidence of acute acute intracranial infarcti on or hemorrhage. Left temporal subcortical hypodensity unchanged. No acute intracranial hemorrhage, extra-axial collections or obstructive hydrocephalus. No evidence of brain mass. There is no signific ant interval change. IMPRESSION: Chronic intracranial findings unchanged. As per stroke protocol, I called these results to emergency room, discussed with Rai Wells at 10/04/2021 09:19 CLEANING STAFF SUPERVISOR . Reviewed, dictated and finalized at location A. NING STAFF SUPERVISOR IMPRESSION: Chronic intracranial findings unchanged. As per stroke protocol, I called these results to emergency room, discussed wit h Wm Melo MD at 10/04/2021 09:19 CLEANING STAFF SUPERVISOR .
--- NOTE | 2021-10-04 09:07 | ECG_ITS ---
Measurements Intervals [place] Rate: 59 P: 70 [place]: 212 QRS: 72 QRSD: 106 T: -39 QT: 457 QTc: 455 Interpretive Statements SINUS BRADYCARDIA WITH FIRST DEGREE AV BLOCK ATRIAL PREMATURE COMPLEX MINIMAL Q WAVES- ANTEROLATERAL LEADS CONSIDER INFERIOR INFARCT, AGE INDETERMINATE T WAVE ABNORMALITY IN ANTEROLATERAL LEADS- CONSIDER ISCHEMIA BASELINE ARTIFACT- I, II, III, AVR, AVL, AVF, V4-V6 ABNORMAL ECG Electronically Signed On 10-04-2021 10:15:55 NURSES SUPERVISOR by Adalid Lee D.O.
--- NOTE | 2021-10-04 09:07 | ED.NEUROSD ---
HPI - Neuro Symptoms/Deficit General Chief Complaint: Weakness Stated Complaint: AMBULANCE Time Seen by Provider: 10/04/21 09:07 Source: EMS Mode of arrival: EMS Limitations: physical limitation History of Present Illness HPI Narrative: 55-year-old male, assisted living resident with a history of autism, status post resection of meningeal tumor, depression, psychosis, seizure disorder, RAMONA, cystic fibrosis on pancreatic supplement, COPD with recurrent falls was brought in by EMS with -- got up this morning 4 hours ago with left-sided weakness . -- Aphasic. The patient has a history of mono syllable speech and is very hard of hearing. -- Multiple bruises all over the body predominantly over the left shoulder left arm and left posterior chest. History of recurrent falls with multiple injuries in the past including head injury -- noted to be hypothermic with a rectal temperature of 87.7 Onset (ago): hour(s) ( neuro deficit noted 4 hours ago. He got up from sleep with a deficit) Timing confirmed by: caregiver Location: speech ( noted to be aphasic. Has minimal speech at baseline.), left arm and left leg History of same: No Severity: moderate Relieving factors: none Exacerbating factors: none Context: sudden onset and recent trauma On Anticoagulants: No Treatments Prior to Arrival: none Related Data Home Medications Medication Instructions Recorded Confirmed Calcium 600 + D(3) 1 cap PO DAILY 10/21/19 10/04/21 Chloraseptic Throat Simpson 1 spray MUCOUS MEMBRANE TID PRN 10/21/19 10/04/21 Creon 1 cap PO HS 10/21/19 10/04/21 Creon 2 cap PO TIDWM 10/21/19 10/04/21 Therems-M 1 tablet PO DAILY 10/21/19 10/04/21 acetaminophen [Mapap 650 mg PO Q6-8H PRN 10/21/19 10/04/21 (acetaminophen)] lamotrigine 100 mg PO DAILY 10/21/19 10/04/21 lamotrigine 150 mg PO HS 10/21/19 10/04/21 magnesium hydroxide [Milk of 30 ml PO DAILY PRN 10/21/19 10/04/21 Magnesia] omeprazole 20 mg PO BID 10/21/19 10/04/21 risperidone 2 mg PO HS 10/21/19 10/04/21 Trikafta 1 ea PO HS 07/04/21 10/04/21 albuterol sulfate 2.5 mg INHALATION BID 07/04/21 10/04/21 Cepacol Sore Throat Simpson 1 spray PO PRN PRN 10/04/21 10/04/21 Tonya-Lanta 30 ml PO DAILY PRN 10/04/21 10/04/21 Pepto-Bismol 30 ml PO PRN PRN 10/04/21 10/04/21 Tri-Buffered Aspirin 325 mg PO DAILY 10/04/21 10/04/21 atorvastatin 40 mg PO HS 10/04/21 10/04/21 Allergies Allergy/AdvReac Type Severity Reaction Status Date / Time No Known Allergies Allergy Verified 10/04/21 09:28 Review of Systems Review of Systems: The patient is very hard of hearing and is nonverbal. He is unable to answer questions. [facility] Past Medical History Medical History Autism COPD (chronic obstructive pulmonary disease) Cystic fibrosis Depression Hard of hearing Psychosis Seizure Surgical History Surgical History H/O excision of tumor of brain meninges Family History Family History Father Leukemia Social History Social History Smoking status: Unknown if ever smoked Alcohol intake: unknown Substance use: unknown Substance use type: unknown Gender identity (if verbalized by the patient): Male Spiritual care concerns: No Exam Const: General: no acute distress Other: Patient is awake but does not answer questions. He does not appear to be in any distress. Patient is hypothermic with a temperature of 87.7 rectal temperature he appears to be moving all his limbs spontaneously even though he does not follow commands HENMT: Head: normal to inspection Face and sinus: normal facial exam Mouth: Yes lip normal Eyes: Conjunctivae: conjunctivae normal Pupils: Equal, round and reactive pupils present Neck: Neck: normal visual inspection and no lymphadenopathy Chest:
[2021-10-04] MEDS: LACTATED RINGERS 1,000 ML 999 ML IV CONT (09:24)
--- NOTE | 2021-10-04 09:24 | PC.NURSE ---
RN getting low oral and temporal temp. Rectal temp done. PT 87.5 rectal. ERP made aware. 1,000mL warm LR infusing as ordered. Bear hugger at bedside. 0910 After arrival to ED and CT scan. RN undressed pt with MO Brewer. Noted bruising of various levels of healing. A large purple bruise noted to the left rib cage. Bruising noted to left arm as well as several scabbed abrasions. Pt has bruise noted to buttocks. Small amount of skin breakdown in the gluteal cleft.
--- NOTE | 2021-10-04 09:40 | PC.NURSE ---
Rn spoke with Arina from [facility] pt used to walk around fine. Pt has been in a wheelchair for a month after going to rehab. She states he has had increased falls recently. Yesterday he was more weak then normal and had multiple falls. She states this morning he was in the dining [place]antiago and was drooling on himself and not responding like normal. When RN asked about bruising December states pt gets arms caught in his wheelchair. And from his multiple falls.
[2021-10-04 10:06] LABS: Hematocrit 28.4 % (40.0-54.0); Immature Platelet Fraction Pct 5.6 % (1.0-7.0); Mean Corpuscular HGB Conc 35.2 g/dL (32.0-36.0); Mean Corpuscular Hemoglobin 32.9 pg (27.0-31.0); Mean Corpuscular Volume 93.4 fL (78.0-102.0); Platelet Count Result 35 K/mm3 (150-420); Red Blood Count 3.04 M/mm3 (4.70-6.10); White Blood Count 2.8 K/mm3 (4.8-10.8)
[2021-10-04 10:10] LABS: INR 1.2; Prothrombin Time 12.6 Seconds (9.50-12.10)
[2021-10-04 10:22] LABS: Band Neutrophils Percent 0 % (0-6); Eosinophils Absolute Manual 0.02 K/mm3 (0.02-0.5); Eosinophils Percent Manual 1 % (1-6); Lymphocytes Absolute Manual 0.58 K/mm3 (1.1-4.5); Lymphocytes Percent Manual 21 % (18-44); Monocytes Absolute Manual 0.22 K/mm3 (0.1-0.90); Monocytes Percent Manual 8 % (3-9); Neutrophils Absolute Manual 1.96 K/mm3 (1.3-6.7); Neutrophils Percent Manual 70 % (46-73); Total Cells Counted 100
[2021-10-04 10:23] LABS: Platelet Estimate Decreased (Adequate)
--- NOTE | 2021-10-04 10:23 | PC.NURSE ---
RN rechecked pts rectal temp. Temp 87 continues to have bear hugger on at tis time.
[2021-10-04 10:24] LABS: Alanine Aminotransferase 85 U/L (16-63); Albumin Level 2.8 g/dL (3.4-5.0); Alkaline Phosphatase 156 U/L (46-116); Anion Gap 7 mmol/L (8-16); Aspartate Amino Transferase 72 U/L (15-37); Bilirubin,Total 0.8 mg/dL (0.00-1.00); Blood Urea Nitrogen 25 mg/dL (7-18); Calcium 8.8 mg/dL (8.5-10.1); Carbon Dioxide 29 mmol/L (21-32); Chloride 97 mmol/L (98-108); Estimated CRCL calculation 82 ml/min; Estimated Glomerular Filt Rate > 60; Glucose 189 mg/dL (70-99); NT Pro B Type Natriuretic Pept 45 pg/mL (0-125); Osmolality Calculated 285 mOsm/kg (285-295); Potassium 4.1 mmol/L (3.5-5.1); SARS-CoV-2 Ag Positive (Negative); Sodium 133 mmol/L (136-145); Total Protein 5.8 g/dL (6.4-8.2)
[2021-10-04 10:26] LABS: Lactic Acid Reflex 2.5 mmol/L (0.4-2.0)
[2021-10-04 10:28] LABS: Thyroid Stimulating Hormone 8.74 uIU/mL (0.36-3.74); Troponin I 10.5 ng/L (0.00-60.4)
[2021-10-04 10:29] LABS: Lipase < 10 U/L (73-393)
[2021-10-04] MEDS: SODIUM CHLORIDE 0.9% IV 500 ML IV CONT (11:18)
--- NOTE | 2021-10-04 11:59 | PC.NURSE ---
IV rocephin and zithromax infusing when transported to floor.
--- NOTE | 2021-10-04 12:23 | PC.NURSE ---
RN asked banquet manager if a report should be made due to the bruising and cold temps of patient. Per radio station manager since the pt is known for falls and has a known documented hx of falls we do not need to report this. ERP aware.
[2021-10-04] MEDS: DEXTROSE 5%/0.45% SOD CHL 1,000 ML 100 ML IV CONT (12:41)
[2021-10-04 12:49] LABS: Reflex Lactic Acid Yes or No Add Lactic
--- NOTE | 2021-10-04 14:05 | PC.NURSE ---
Patient arrived to [facility] via stretcher from ER. Two staff member assist from stretcher to bed. Patient hypothermic at T 87.5. Warming blanket intact and warm fluids had been ran in ER. Patient has large areas of Black, blue, and red bruising on LUE and upper L torso. +1 pitting edema noted. VS in ER T 87.5, BP 93/62, 61,91%. MD advised that as patient warms, BP will continue to decrease due to vasodilation. Patient sleeping soundly at this time. [facility] to [facility] for [facility]. [facility] states that they will bring meds to hospital.
--- NOTE | 2021-10-04 22:45 | PC.NURSE ---
dr notified of snoring respirations and 02 level of 85% on RA, given verbal orders for 02 via nc and d/c fluids
--- NOTE | 2021-10-04 23:15 | PC.NURSE ---
Dr. Melo notified of pt's low SAO2 and increased respirations.
--- NOTE | 2021-10-04 23:30 | PC.NURSE ---
Dr. Melo here to see patient.
[2021-10-05] VITALS: BP 67/38; PULSE 109; RESP 30; TEMP 37; O2SAT 92
[2021-10-05 00:03] LABS: Base Excess ABG -1.4 mmol/L (0-2); HCO3 ABG 22.1 mmol/L (23-29); Oxygen Content ABG 12.8 %vol (16.0-22.0); Oxygen Saturation ABG 88.1 % (95-97); Oxyhemoglobin 87.4 % (94-100); PCO2 ABG 32.6 mmHg (35-45); PO2 ABG 55.8 mmHg (80-90); Total Hemoglobin 10.4 g/dL (12.0-18.0); pH ABG 7.45 (7.35-7.45)
[2021-10-05 00:04] LABS: Device SIMPLE MASK; Modified Allen's Test Pass; Site Drawn RIGHT RADIAL
[2021-10-05 00:20] VITALS: PULSE 111; RESP 42; O2SAT 92
[2021-10-05 00:21] VITALS: PULSE 111; RESP 42; O2SAT 92
--- NOTE | 2021-10-05 00:36 | PM.IMPN ---
Progress Note: A&P Additional Plan 55-year-old male presents with COVID acute hypoxic respiratory failure secondary to bilateral lung infiltrates / aspiration/rule out PE/ history of cystic fibrosis the patient presented with bilateral lung infiltrates without any significant oxygenation problems on admission. Subsequently the patient developed hypoxia with oxygen saturation in the 80% on room air. Subsequently the patient was placed on BiPAP 14/5 with a rate of 24 and an FiO2 of 10 L with an ABG of 745/33/56/88%. In view of the bilateral lung infiltrates the patient had been started on Rocephin and Zithromax. will discontinue Rocephin and start him on vancomycin and cefepime. The patient is on Trikafta for CF The patient is noted to have an elevated D-dimer. Would be concerned about starting anticoagulation. will get a CTA chest as soon as feasible. The patient has been started on IV Decadron and remdesivir. 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 The patient has a chronic history of [place] syllable speech. On admission the patient had a blunted affect, aphasia without any focal deficits. Patient had a CT of the head which did not show any acute findings. After admission the patient developed worsening shortness of breath along with hypotension and hypoxia. Will continue to monitor his neuro status. Would recommend repeating a CT of the head to rule out ICH and any new intracranial deficits. Hypotension secondary to septic shock secondary to bilateral lung infiltrates on presentation the patient had low normal blood pressure which got worse as he was re-warmed secondary to his hypothermia. The patient received 1.5 L of IV fluids and was subsequently placed on 100 cc of normal saline per hour. The patient became hypotensive and is currently noted to have a blood pressure of 60/40. Would not be able to give him any IV fluids at this time in view of possible CHF secondary to the bilateral lung infiltrates. the patient has a right IJ central line. Will broaden his IV antibiotics and add vancomycin and cefepime. The patient had an EKG which did not show any acute findings. The patient had a negative troponin. elevated LFTs possibly secondary to COVID. pancytopenia secondary to sepsis and COVID. the patient does not have any evidence of external bleeding.. The patient has worsening mental status. Would consider getting a CT of the head to rule out intracranial hemorrhage secondary to the thrombocytopenia of 34. [facility] called multiple hospital ICU so requesting for a transfer. No ICU beds available at this time. Currently talking to months to [facility] for possible transfer to the ICU. 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 Attempted to do an NIH SS but was unable to complete. The patient was noted to be moving all his limbs spontaneously without any focality. patient had a CT of the head which did not show any acute findings. -- aphasic. The patient has chronic history of expressive aphasia and answers in monosyllables -- multiple bruises from recurrent falls. The patient has recently be being placed on a wheelchair which is unable to handle and keeps falling down from the wheelchair. He was noted to have -- COVID with elevated LFTs, pancytopenia -- bilateral perihilar infiltrates -- altered mental status -- Hypothermia
[2021-10-05 00:37] LABS: INR 1.1; Prothrombin Time 11.9 Seconds (9.50-12.10)
[2021-10-05 00:41] LABS: Alanine Aminotransferase 83 U/L (16-63); Estimated CRCL calculation 58 ml/min; Estimated Glomerular Filt Rate 59
[2021-10-05 00:43] LABS: D Dimer 1.53 mg/L (0.19-0.50)
--- NOTE | 2021-10-05 00:43 | PC.NURSE ---
Lab called to report a critical d-dimer of 1.53.
[2021-10-05 00:44] LABS: Troponin I 42.9 ng/L (0.00-60.4)
[2021-10-05 00:44] LABS: NT Pro B Type Natriuretic Pept 234 pg/mL (0-125)
--- NOTE | 2021-10-05 00:50 | PC.NURSE ---
Pt given Decadron 10 mg IVP as ordered.
--- NOTE | 2021-10-05 00:51 | PC.NURSE ---
Dr. Melo called about critical d-dimer; Orders received and noted and norepinephrine increased to 10 mcg/min. as ordered.
--- NOTE | 2021-10-05 00:53 | PC.NURSE ---
Dr. Melo called and ordered a rodriguez catheter to be put in.
--- NOTE | 2021-10-05 00:55 | PC.NURSE ---
0040 Called [facility], No ICU beds, would not take info; 0042 Called [facility] no ICU beds, would not take info, 0046 [facility] No beds, did take information 0047 [facility] system called patient sees pulmonary there did take information;
--- NOTE | 2021-10-05 01:15 | PC.NURSE ---
Norepinephrine infusing at 10 mcg/min as ordered.
--- NOTE | 2021-10-05 01:15 | PC.NURSE ---
Norepinephrine is infusing at 5 mcg/min as ordered.
[2021-10-05] MEDS: NOREPINEPHRINE 8 MG/D5W 250 ML 8 MG/250 ML BAG 9.38 MG IV CONT (01:23)
[2021-10-05] MEDS: REMDESIVIR 200 MG/NS 250 ML 200 MG/250 ML BAG 250 MG IVPB (01:29)
--- NOTE | 2021-10-05 01:30 | PC.NURSE ---
Central line inserted per MD and Bipap started per RT, o2 sat at 82 prior to, has increased to 93, MD present for this, BP 67/36. Mccloud inserted # 16 without difficulty and is draining clear saul urine. POA made aware of patient condition. Patient is unresponsive at this time, o2 sat 94.
--- NOTE | 2021-10-05 01:45 | PC.NURSE ---
Norepinephrine rate increased to 10 mcg/min as ordered.
--- NOTE | 2021-10-05 02:25 | PC.NURSE ---
Cefipime 2 gms infusing as ordered.
[2021-10-05 02:30] VITALS: RESP 34; O2SAT 92
--- NOTE | 2021-10-05 02:50 | PC.NURSE ---
Vancomycin 1.25 gms infusing as ordered.
--- NOTE | 2021-10-05 03:00 | PC.NURSE ---
[facility] caalled to get report on pt. Spoke to Matilde, who took report. Pt will be going to bed [id number] and his specialist will be Dr. Moreira.
--- NOTE | 2021-10-05 03:10 | PC.NURSE ---
Pt's vital signs are 116/60, 102, 98.0,94% and 28. Pt is opening his eyes a little at this time.
--- NOTE | 2021-10-05 03:14 | PC.NURSE ---
Spoke with POA and made aware of plans to transport patient per [facility] to [facility] for further treatment, POA in agreement.
--- NOTE | 2021-10-05 03:30 | PC.NURSE ---
Matilde, from [facility], called to get lab results regarding patient.
--- NOTE | 2021-10-05 04:05 | PC.NURSE ---
[facility] here to pick pt up for transport to [facility].
[2021-10-05 05:00] VITALS: O2SAT 92
--- NOTE | 2021-10-05 05:05 | PC.NURSE ---
Pt picked up by [facility] and on route to [facility].
== END 2021-10-05 05:05 | disposition short-term general hospital (02) | DRG 177 ==
LOC: CHSED 11:16 → CHS2ND 11:46
PROVIDERS: Admitting Provider Internal Medicine Critical Care Medicine; Emergency Provider Internal Medicine Critical Care Medicine; Visit Provider Internal Medicine Critical Care Medicine
DX: U07.1 COVID-19 (principal); J18.9 Pneumonia, unspecified organism; A41.89 Other specified sepsis; J96.01 Acute respiratory failure with hypoxia; S40.022A Contusion of left upper arm, initial encounter; S20.222A Contusion of left back wall of thorax, initial encounter; J12.82 Pneumonia due to coronavirus disease 2019; R65.21 Severe sepsis with septic shock; R56.9 Unspecified convulsions; R29.6 Repeated falls; F84.0 Autistic disorder; F32.A Depression, unspecified; F29 Unspecified psychosis not due to a substance or known physiological condition; D61.818 Other pancytopenia; E84.9 Cystic fibrosis, unspecified; T68.XXXA Hypothermia, initial encounter; J44.9 Chronic obstructive pulmonary disease, unspecified; I95.9 Hypotension, unspecified; R41.82 Altered mental status, unspecified
CPT/HCPCS: 36415; 36600; 70450; 71045; 72170; 80053; 82565; 82805; 83605; 83690; 83880; 84443; 84460; 84484; 85025; 85055; 85380; 85610; 87040; 87426; 93005; 94002; 96360; 99285; A9270; C1751; C9803; J0456; J0692; J0696; J1100; J3370; J7030; J7040; J7120